=== PATIENT | female | born 1995 | race Caucasian/White ===

== ENCOUNTER 2016-10-31 12:12 | Day surgery (SDC) | payer OTHER ==
[~2016-10-31 12:12] MED LIST: CEFAZOLIN SODIUM 2 GRAM PREMIX 100 ML IV SCH
[2016-10-31] MEDS ORDERED: LACTATED RINGERS 1,000 ML ONE ×2 (12:18→15:47)
[2016-10-31] MEDS ORDERED: IV START KIT ONE (12:19)
[2016-10-31] MEDS ORDERED: CEFAZOLIN SODIUM 2 GRAM PREMIX 100 ML IV ONE (12:19)
[2016-10-31] MEDS ORDERED: LIDOCAINE 1%/EPI 1:100,000 (MULTI DOSE) 30 ML VIAL SUB-Q ONE (14:00)
[2016-10-31] MEDS ORDERED: FENTANYL 100 MCG/2 ML VIAL ONE (14:02)
[2016-10-31] MEDS ORDERED: MIDAZOLAM HCL 5 MG/5 ML VIAL ONE (14:02)
[2016-10-31] MEDS ORDERED: PROPOFOL 20 ML IV ONE ×2 (14:30→15:12)
[2016-10-31] MEDS ORDERED: ONDANSETRON 4 MG/2ML 2 ML VIAL ONE (14:30)
[2016-10-31] MEDS ORDERED: DEXAMETHASONE SOD PHOS 4 MG/1 ML VIAL ONE (14:30)
[2016-10-31] MEDS ORDERED: ROCURONIUM BROMIDE 10 MG/ML DOSE IV ONE (14:30)
[2016-10-31] MEDS ORDERED: NALOXONE HCL 0.4 MG/ML VIAL IV PRN (14:37)
[2016-10-31] MEDS ORDERED: FENTANYL 100 MCG/2 ML VIAL IV PRN (14:37)
[2016-10-31] MEDS ORDERED: ATROPINE SULFATE 0.4 MG/1 ML VIAL IV PRN (14:37)
[2016-10-31] MEDS ORDERED: ONDANSETRON 4 MG/2ML 2 ML VIAL IV PRN ×2 (14:37→16:10)
[2016-10-31] MEDS ORDERED: PROMETHAZINE HCL 25 MG/ML VIAL IM PRN (14:37)
[2016-10-31] MEDS ORDERED: LACTATED RINGERS 1,000 ML IV SCH (14:45)
[2016-10-31] MEDS ORDERED: NEOSTIGMINE METHYLSULFATE 1 MG/ML DOSE ONE ×3 (15:17→15:18)
[2016-10-31] MEDS ORDERED: GLYCOPYRROLATE 0.2 MG/ML 1ML VIAL ONE ×2 (15:17→15:30)
[2016-10-31] MEDS ORDERED: GLYCOPYRROLATE 0.2 MG/ML 1ML VIAL IV ONE (15:47)
[2016-10-31] MEDS ORDERED: OXYCODONE/ACETAMINOPHEN 5/325 MG TABLET PO PRN (16:10)
[2016-10-31] MEDS ORDERED: KETOROLAC TROMETHAMINE 30 MG/ML 1 ML VIAL IV PRN (16:10)
[2016-10-31] MEDS ORDERED: OXYCODONE/ACETAMINOPHEN 5/325 MG TABLET ONE (16:58)
--- NOTE | 2016-10-31 20:04 | OP ---
ASHA NORWOOD [id number] DATE OF OPERATION: October 31, 2016 PREOPERATIVE DIAGNOSIS: Subcutaneous mass mid lumbar back. POSTOPERATIVE DIAGNOSIS: Unusual cystic structure emanating from the supraspinous ligament. PROCEDURE: EXCISION OF CYSTIC SUBCUTANEOUS MASS. SURGEON: Gallo Nair M.D. ANESTHESIA: General endotracheal by Vik Mendez C.R.N.A. INDICATIONS: This is a 21-year-old female who has an unusual palpable abnormality in the low midline back. An ultrasound suggests an inflammatory process. There are no inflammatory changes on the skin. She is taken to surgery for excision. DESCRIPTION: With informed consent she was taken to the operating room. She was laid supine on the operating room table. General endotracheal anesthetic was administered. She was then placed in a prone position. The lower back was prepped and draped in the usual sterile fashion. Some local anesthetic was administered. A transverse incision was made over the palpable abnormality. We dissected down through the subcutaneous fat. I identified an unusual soft lesion. It was able to be dissected free of the surrounding fatty tissues. It was in the midline. I was able to dissect down to the supraspinous ligament above and below it. At first I thought it might actually be extending below the ligament but never did find a tract. Eventually I it from the ligament. I inspected it and it had no obvious holes. I then opened it with a knife and found a well defined capsule. There was no sebaceous or other material within it. There was no fluid within it. I again probed the inner aspect to make sure there was no opening to suggest a deeper attachment within the patient. It looks like this was about the level of L3 spinous process. Again I did not actually go through the supraspinous ligament. The wound was irrigated. We appeared to have adequate hemostasis. The subcutaneous tissues were brought together with some #3-0 Vicryl. The skin was closed with a running subcuticular #4-0 Monocryl. Mastisol and SteriStrips were placed. Sterile dressings were applied. She tolerated the procedure and was taken to the recovery room in stable condition. Note was made that needle, instrument and lap counts were reported as correct at time of closure. Cc: Julio Urbano M.D.
--- NOTE | 2016-11-03 14:30 | SURGPATH ---
[facility] [address] [place] [id number] Patient Name: ASHA NORWOOD MR#: [id number] : 1995 Gender: F Specimen #: [id number] Collected: 10/31/2016 Received: 11/02/2016 Reported: 11/03/2016 Submitting Phys: ROBERT HOUSER Copy To Phys: JAMIE LI [facility] Clinical History / Pre-Operative Diagnosis: MASS MID LOWER BACK Specimen Source / Surgical Procedure Performed: CYSTIC MID LOWER BACK MASS, 2 CM Interpretation: EXCISION, CYSTIC MID LOWER BACK MASS: - BENIGN FIBROUS WALLED CYST (SEE COMMENT). Comment: The histologic findings would favor a synovial or ganglion cyst. Please correlate clinically. Electronically Signed Out Katie Kaminski M.D. Gross Description: The specimen is received in a formalin filled container labeled with the patient's name and "cystic mid lower back mass". A yellow to moreno-arceo fragment of fibrofatty connective tissue is 2.5 x 1.5 x 1 cm. The specimen is multiply cross sectioned to reveal a central 2 cm collapsed and disrupted, smooth lined cystic space. Totally embedded as four sections in one cassette. Ollie Goldstein Microscopic Description: Sections of the specimen show a cystic structure with a dense fibrous wall showing focal degenerative changes. The cyst has no epithelial lining; however, there is an area which resembles synovial type tissue. There is no evidence of malignancy. 1: [id number] M71.38
== END 2016-10-31 18:40 | disposition home or self-care (01) ==
LOC: SDC 12:12
PROVIDERS: ATTEND Surgery
DX: M71.38 Other bursal cyst, other site (principal); D64.9 Anemia, unspecified; F41.9 Anxiety disorder, unspecified; R01.1 Cardiac murmur, unspecified; F32.9 Major depressive disorder, single episode, unspecified
CPT/HCPCS: 21931; J3010; J1100; A9270; J2250; J2001; J2405; J7120 ×2; J0690